=== PATIENT | female | born 1965 | race American Indian/Alaskan Native ===

== ENCOUNTER 2018-03-03 06:04 | Day surgery (SDC) | payer BC, OTHER ==
[2018-03-03] MEDS ORDERED: WATER FOR IRRIG STERILE IR ONE (06:44)
--- NOTE | 2018-03-03 07:38 | Anesthesia Day of Surgery ---
Anesthesia Day of Surgery - Day of Surgery Patient Examined: Yes Patient H&P Reviewed: Yes Patient is NPO: Yes
--- NOTE | 2018-03-03 07:38 | Anesthesia Consultation ---
Anesthesia Consult and Med Hx Date of service: 03/03/18 - Airway Anesthetic Teeth Evaluation: Chipped ROM Head & Neck: Adequate Mental/Hyoid Distance: Adequate Mallampati Class: Class II Intubation Access Assessment: Probably Good - Pre-Operative Health Status ASA Pre-Surgery Classification: ASA3 Proposed Anesthetic Plan: MAC - Cardiovascular System Hx Hypertension: Yes - Endocrine Hx Insulin Dependent Diabetes: Yes - Other Systems Hx Obesity: Yes
[2018-03-03] MEDS ORDERED: DIPRIVAN 10 MG/ML IV ONE ×4 (07:43→08:44)
[2018-03-03] MEDS ORDERED: NACL 0.9% 1000 ML 1,000 ML IV SCH (08:00)
[2018-03-03] MEDS ORDERED: ZOFRAN ONE (08:08)
--- NOTE | 2018-03-03 09:53 | Post Anesthesia Evaluation ---
- Post Anesthesia Evaluation Patient Participated: No (sleeping) Airway Patent: Yes Stable Respiratory Function: Yes Nausea/Vomiting: No Temp > 96.8F: Yes Pain Manageable: Yes Adequeate Hydration: Yes Anesthesia Complications: Yes Block Receding Appropriately: No Patient on Ventilator: No
[2018-03-03 10:15] VITALS: BP 117/80
== END 2018-03-03 06:05 | disposition home or self-care (01) ==
LOC: GIO 06:04
PROVIDERS: ATTEND Internal Medicine Gastroenterology
DX: K63.5 Polyp of colon (principal); K29.50 Unspecified chronic gastritis without bleeding; B96.81 Helicobacter pylori [H. pylori] as the cause of diseases classified elsewhere; E78.00 Pure hypercholesterolemia, unspecified; I10 Essential (primary) hypertension; E11.9 Type 2 diabetes mellitus without complications; R63.4 Abnormal weight loss; E66.9 Obesity, unspecified; Z68.42 Body mass index [BMI] 45.0-49.9, adult; Z79.4 Long term (current) use of insulin; Z79.899 Other long term (current) drug therapy; Z79.01 Long term (current) use of anticoagulants; Z86.711 Personal history of pulmonary embolism; Z83.3 Family history of diabetes mellitus
CPT/HCPCS: 43239; 45380; 81025; 82962; 88305; 88312; 88313; 88342; J2405; J2704; J7030

== ENCOUNTER 2018-04-13 07:11 | Emergency (ER) | payer BC, OTHER ==
[2018-04-13] MEDS ORDERED: NACL 0.9% 500 ML 500 ML IV ONE (09:05)
[2018-04-13] MEDS ORDERED: SUBLIMAZE IV ONE ×3 (09:05→11:00)
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
[2018-04-13 09:39] LABS: Hematocrit 26.3 % (30.3-42.9); Hemoglobin 8.7 gm/dl (10.1-14.3); Mean Corpuscular HGB Conc 33 % (30-34); Mean Corpuscular Volume 89 fl (79-97); Platelet Count 357 K/mm3 (140-440); Red Blood Count 2.97 M/mm3 (3.65-5.03); Red Cell Distribution Width 15.3 % (13.2-15.2)
[2018-04-13 10:03] LABS: Alanine Aminotransferase 36 units/L (7-56); Albumin 3.8 g/dL (3.9-5); BUN/Creatinine Ratio 13; Blood Urea Nitrogen 9 mg/dL (7-17); Calcium 9.3 mg/dL (8.4-10.2); Hemolysis Index 2
[2018-04-13 10:04] LABS: INR 1.18 (0.87-1.13); Partial Thromboplastin Time 23.5 Sec. (24.2-36.6)
[2018-04-13] MEDS ORDERED: NACL 0.9% 1000 ML 1,000 ML IV ONE (10:51)
[2018-04-13] MEDS ORDERED: MAGNESIUM SULFATE 2GM/50ML 2 GM/50 ML BAG IV ONE (10:51)
[2018-04-13] MEDS ORDERED: HumuLIN R IV ONE (10:51)
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
[2018-04-13] MEDS ORDERED: MAG-OX PO STA (10:58)
--- NOTE | 2018-04-13 12:39 | Cat Scan Report ---
CTA CHEST: HISTORY: chest pain. COMPARISON: none. TECHNIQUE: Helical CT in 1.25mm intervals following IV contrast. Sagittal and coronal reformatted images. Rotational MIP images. FINDINGS: Contrast bolus is satisfactory. No pulmonary embolus is identified. Thyroid gland: Normal. Tracheobronchial tree: Normal. Esophagus: Normal. Heart: Normal. Pericardium: Normal. Mediastinum: Normal. Lung Pham: Normal. Pleural Spaces: Normal. Musculoskeletal: Normal. IMPRESSION: No evidence for pulmonary embolus. Unremarkable CT chest with contrast. No acute process is identified.
--- NOTE | 2018-04-13 12:41 | Cat Scan Report ---
CT ABDOMEN PELVIS WITH CONTRAST: HISTORY: abdominal pain. COMPARISON: none. TECHNIQUE: Helical CT in 1.25mm intervals following IV contrast. Sagittal and coronal reconstructions. FINDINGS: Liver: There is mild fatty change throughout the liver. No focal lesion or acute injury. Biliary system: Normal. Pancreas: Normal. Spleen: Normal. Kidneys/ureters/bladder: Normal. Adrenal glands: Normal. Aorta: Normal. Intestines: Within normal limits. Appendix: Normal. Pelvic viscera: Normal. Ascites: There is trace perihepatic and pelvic ascites. Adenopathy: None. Musculoskeletal: Intact. Mild thoracolumbar spondylosis. IMPRESSION: No acute injury is identified in the abdomen or pelvis. Mild fatty change in the liver. Trace ascites.
[2018-04-13 13:21] VITALS: BP 131/70
[2018-04-13] MEDS ORDERED: PERCOCET 5/325 ONE (13:25)
--- NOTE | 2018-04-13 13:30 | XRay Report ---
AP PELVIS: HISTORY: pain. AP view of the pelvis shows normal pelvic contour and soft tissues. The hips are symmetric and within normal limits as are the sacroiliac joints. IMPRESSION: Normal pelvis.
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
--- NOTE | 2018-04-13 13:31 | XRay Report ---
AP CHEST: HISTORY: chest pain AP view of the chest demonstrates a normal mediastinal and cardiac contour with clear lungs and normal bony and soft tissue structures. IMPRESSION: Unremarkable AP chest.
== END 2018-04-13 14:17 | disposition home or self-care (01) ==
LOC: ED 07:11
DX: S09.90XA Unspecified injury of head, initial encounter (principal); R10.9 Unspecified abdominal pain; M25.562 Pain in left knee; E83.42 Hypomagnesemia; I10 Essential (primary) hypertension; E11.9 Type 2 diabetes mellitus without complications; Z86.711 Personal history of pulmonary embolism; V49.49XA Driver injured in collision with other motor vehicles in traffic accident, initial encounter; Y93.89 Activity, other specified; Y92.89 Other specified places as the place of occurrence of the external cause; Y99.8 Other external cause status
CPT/HCPCS: 36415; 70450; 71045; 71275; 72170; 73560; 74177; 80053; 82550; 83690; 83735; 84484; 85027; 85610; 85730; 86850; 86900; 86901; 93005; 93010; 96365; 96375; 96376; 99285; J3010; J3475; J7030; J7040; Q9967; J1815